=== PATIENT | female | born 1945 | race Caucasian/White ===

== ENCOUNTER → 2016-08-01 | Outpatient (CLI) | payer BC ==
[~2016-08-01] MED LIST: DEXILANT60 MG PO; PROTONIX PO; SYNTHROID PO; TRIAMTERENE-HCT1 TA8 PO; ZOLOFT PO
--- NOTE | ~2016-08-01 | MY11 ---
"[facility] A Service of [facility] RADIOLOGY TEXT RESULTS PATIENT: JOSHUA WALTON LOCATION: [facility] : 41 UNIT #: [id number] AGE: [address]: Trevor Avalos MD SEX: F ORDER DR: [id number] [address] [place], [place] [address] [id number] MR#: [id number] Acc #: [id number] NAME: JOSHUA WALTON : 1945 SEX: F STUDY DATE/TIME: 08/01/2016 11:47 UNIT: [facility] ROOM: STUDY DESCRIPTION: MY Mammogram Screening Dig Neymar Attending Physician: rTevor Avalos M.D. Ordering Physician: Trevor Avalos M.D. Primary Care Physician: Trevor Avalos M.D. MEDICAL IMAGING REPORT This report is preliminary unless electronic signature is present EXAM Bilateral digital screening mammogram with CAD, 08/01/2016. INDICATION 70-year-old female for routine screening. No reported problems. Personal history of breast cancer on the right status post mastectomy and TRAM flap procedure. History of left breast reduction. No family history of breast cancer.| TECHNIQUE CC and MLO views were obtained bilaterally. COMPARISONS 07/28/2015, 07/12/2014, 12/23/2012 FINDINGS There is evidence of breast reconstruction and reported TRAM flap procedure on the right. Scattered fibroglandular densities are present. There is no new dominant nodule, mass, or suspicious cluster of microcalcifications. Benign calcifications are present. IMPRESSION Benign screening mammogram. 1 year followup recommended. Patients over the age of 40 are entered into a reminder system with target due date for the next mammogram. A result letter will also be sent to the patient. BIRADS: 2 Benign finding. Dictated by... [facility] A Service [facility] RADIOLOGY TEXT RESULTS PATIENT: JOSHUA WALTON LOCATION: [facility] : 41 UNIT #: [id number] AGE: [address]: Trevor Avalos MD SEX: F ORDER DR: Jacob Smith M.D. THIS IS AN ELECTRONICALLY VERIFIED REPORT Jacob Smith M.D. at 08/02/2016 5:35 PM NARESH/janette TD: 08/01/2016 15:04 JOB #: [id number] MEDICAL IMAGING REPORT Page 1 of 1 COPY"
== END | disposition home or self-care (01) ==
LOC: CWCC 11:10
DX: Z12.31 Encounter for screening mammogram for malignant neoplasm of breast (principal); Z85.3 Personal history of malignant neoplasm of breast; Z90.11 Acquired absence of right breast and nipple; Z98.890 Other specified postprocedural states
CPT/HCPCS: G0202